=== PATIENT | male | born 1985 | race Caucasian/White ===

== ENCOUNTER 2022-06-10 20:58 | Emergency (ER) | payer MEDICAID ==
[~2022-06-10 20:58] MED LIST: Diphtheria,Pertussis(Acell),Tetanus Vaccine 0.5 ML Syringe IM ONE; Lidocaine 1% 30 ML SDV INJECT ONE
[2022-06-10] MEDS ORDERED: Bacitracin/Neomycin/Polymyxin B Oint 0.9 GM U/D Packet ONE (21:01)
[2022-06-10] MEDS ORDERED: Cephalexin 500 MG Cap PO ONE (21:23)
[2022-06-10] MEDS ORDERED: Take Home: Cephalexin 500 MG Cap, 4 Cap Pack PO ONE (21:24)
[2022-06-10] MEDS ORDERED: Bacitracin/Neomycin/Polymyxin B Oint 0.9 GM U/D Packet TOP ONE (21:29)
[2022-06-11] MEDS ORDERED: Bacitracin Oint 28.35 GM Tube TOP ONE (08:00)
== END 2022-06-10 21:41 | disposition home or self-care (01) ==
LOC: CC.ED 20:58
DX: S51.811A Laceration without foreign body of right forearm, initial encounter (principal); Z23 Encounter for immunization; X50.9XXA Other and unspecified overexertion or strenuous movements or postures, initial encounter
CPT/HCPCS: 12001; 90471; 90715; 99283; A9270

== ENCOUNTER 2023-03-02 13:30 | Emergency (ER) | payer MEDICAID | END 2023-03-02 14:20 | disposition home or self-care (01) | LOC: CC.ED 13:30 | DX: B02.9 Zoster without complications (principal); Z79.899 Other long term (current) drug therapy | CPT/HCPCS: 99282; 99283 ==

== ENCOUNTER 2024-06-25 14:38 | Emergency (ER) | payer BC, MEDICAID | END 2024-06-25 15:20 | disposition home or self-care (01) | LOC: CC.ED 14:38 | DX: B36.9 Superficial mycosis, unspecified (principal); Z79.899 Other long term (current) drug therapy | CPT/HCPCS: 99282; 99283 ==